=== PATIENT | male | born 2000 | race Two or more races ===

== ENCOUNTER 2022-12-24 21:13 | Emergency (ER) | payer OTHER ==
[~2022-12-24] VITALS: Ht 165.1 cm; Wt 70.3 kg
[2022-12-24] MEDS ORDERED: CLARITHROMYCIN500 M1 PO (21:23)
[2022-12-24] MEDS ORDERED: SINGULAIR4 M1 PO (21:24)
[2022-12-24] MEDS ORDERED: PROVENTIL HFA6.7 GM IH (22:35)
[2022-12-24] MEDS ORDERED: ORAPRED ODT30 MG PO (22:35)
== END 2022-12-24 22:45 | disposition home or self-care (01) ==
LOC: EMR PED 21:13
DX: J45.909 Unspecified asthma, uncomplicated (principal); Z20.822 Contact with and (suspected) exposure to COVID-19

== ENCOUNTER 2023-01-23 22:00 | Emergency (ER) | payer OTHER ==
[~2023-01-23] VITALS: Ht 162.6 cm; Wt 73.5 kg
[~2023-01-23 22:00] MED LIST: CLARITHROMYCIN500 M1 PO; ORAPRED ODT30 MG PO; PROVENTIL HFA6.7 GM IH; SINGULAIR4 M1 PO
[2023-01-23] MEDS ORDERED: AMOXICILLIN875 MG PO (22:08)
[2023-01-23] MEDS ORDERED: CORTISPORIN-TC10 M1 OT (22:08)
== END 2023-01-23 22:21 | disposition home or self-care (01) ==
LOC: ER 22:00 → EMR PED 22:02 → ER 22:02 → EMR PED 22:21
DX: H66.92 Otitis media, unspecified, left ear (principal)

== ENCOUNTER 2023-02-02 19:15 | Emergency (ER) | payer OTHER ==
[~2023-02-02] VITALS: Ht 162.6 cm; Wt 73.5 kg
[~2023-02-02 19:15] MED LIST changes: +AMOXICILLIN875 MG PO; +CORTISPORIN-TC10 M1 OT
[2023-02-02] MEDS ORDERED: OSEL75CA PO (21:29)
== END 2023-02-02 21:29 | disposition home or self-care (01) ==
LOC: ER 19:15 → EMR PED 19:19
DX: J11.1 Influenza due to unidentified influenza virus with other respiratory manifestations (principal); Z20.822 Contact with and (suspected) exposure to COVID-19

== ENCOUNTER 2023-05-01 05:54 | Emergency (ER) | payer OTHER ==
[~2023-05-01] VITALS: Ht 162.6 cm; Wt 73.5 kg
[~2023-05-01 05:54] MED LIST changes: +OSEL75CA PO
[2023-05-01] MEDS ORDERED: ZYRTEC10 M3 PO (09:13)
[2023-05-01] MEDS ORDERED: FLONASE ALLERG9.9 ML NASAL (09:13)
[2023-05-01] MEDS ORDERED: MUCINEX DM ER1 EAC1 PO (09:13)
== END 2023-05-01 09:23 | disposition home or self-care (01) ==
LOC: ER 05:54
DX: R50.9 Fever, unspecified (principal); Z20.822 Contact with and (suspected) exposure to COVID-19

== ENCOUNTER 2023-07-16 13:16 | Emergency (ER) | payer OTHER ==
[~2023-07-16] VITALS: Ht 162.6 cm; Wt 73.5 kg
[~2023-07-16 13:16] MED LIST changes: +FLONASE ALLERG9.9 ML NASAL; +MUCINEX DM ER1 EAC1 PO; +ZYRTEC10 M3 PO
== END 2023-07-16 16:04 | disposition home or self-care (01) ==
LOC: ER 13:16
PROVIDERS: Nurse Practitioner Family
DX: B34.9 Viral infection, unspecified (principal); R51.9 Headache, unspecified; Z20.822 Contact with and (suspected) exposure to COVID-19